=== PATIENT | male | born 1975 | race Caucasian/White ===

== ENCOUNTER 2020-09-24 09:10 | Emergency (ER) | payer SELFPAY ==
--- NOTE | 2020-09-24 12:10 | ER ---
Nurse's Notes [facility] Name: Patrick Soto Age: 45 yrs Sex: Male : 1975 Arrival Date: 09/24/2020 Time: 09:32 Bed DIS8 Private MD: Diagnosis: SARS-associated coronavirus as the cause of diseases classified elsewhere Presentation: 09/24 09:36 Chief complaint: Patient states: chills N/V/D x 3 days. Coronavirus screen: Client da3 denies travel out of the [place] in the last 14 days. Ebola Screen: No symptoms or risks identified at this time. Risk Assessment: Do you want to hurt yourself or someone else? Patient reports no desire to harm self or others. 09:36 Method Of Arrival: Ambulatory da3 09:36 Acuity: CHARLIE 4 da3 Triage Assessment: 09:39 General: Appears in no apparent distress. comfortable, Behavior is calm, cooperative. da3 Historical: - Allergies: 09:38 No Known Allergies; da3 - Immunization history:: Client reports having NOT received the Covid vaccine. - Family history:: not pertinent. - Hospitalizations: : No recent hospitalization is reported. Vital Signs: 09:38 BP 130 / 98; Pulse 73; Resp 20; Temp 98.6; Pulse Ox 100% on R/A; da3 ED Course: 09:32 Patient arrived in ED. ds1 09:38 Triage completed. da3 12:03 Jorje Shea PA is PHCP. yvrose 12:03 Bhavik Guerrero MD is Attending Physician. [facility] 12:35 No provider procedures requiring assistance completed. Patient did not have IV access ss during this emergency room visit. Administered Medications: No medications were administered Outcome: 12:09 Discharge ordered by . rn 12:35 Discharged to home ambulatory. ss 12:35 Condition: good 12:35 Discharge instructions given to patient, Instructed on discharge instructions, follow up and referral plans. Demonstrated understanding of instructions, follow-up care. 12:35 Patient left the ED. ss Signatures: Jorje Shea PA PA jmm Sanford, Demi ds1 Bhavik Guerrero MD MD rn Smirch, Shelby, RN RN ss Allan, David, RN RN da3
--- NOTE | 2020-09-24 12:10 | EDPHYS ---
Physician Documentation [facility] Name: Patrick Soto Age: 45 yrs Sex: Male : 1975 Arrival Date: 09/24/2020 Time: 09:32 Bed DIS8 Private MD: ED Physician Bhavik Guerrero HPI: 09/24 12:03 This 45 yrs old Male presents to ER via Ambulatory with complaints of rn Diarrhea, Body Aches, Chills. 12:03 The patient presents to the emergency department with nausea, diarrhea. Onset: The rn symptoms/episode began/occurred. 12:04 Onset: The symptoms/episode began/occurred 3 day(s) ago. Possible causes: unknown. The rn symptoms are aggravated by nothing. The symptoms are alleviated by nothing. Associated signs and symptoms: Pertinent positives: diarrhea, fever, nausea, Pertinent negatives: abdominal pain, GI bleeding. Severity of symptoms: At their worst the symptoms were mild in the emergency department the symptoms have improved. The patient has not experienced similar symptoms in the past. The patient has not recently seen a physician. Patient reports 3 days of nausea, diarrhea, muscle aches, fatigue, subjective fever. States work told him to come get tested for Covid. Does not want to wait for results. Reports already feeling better with DayQuil. Reports works around a lot of people and was sure that some had Covid. Patient is unvaccinated.. Historical: - Allergies: 09:38 No Known Allergies; da3 - Immunization history:: Client reports having NOT received the Covid vaccine. - Family history:: not pertinent. - Hospitalizations: : No recent hospitalization is reported. 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 12:04 All other systems are negative. Exam: 12:04 Constitutional: This is a well developed, well nourished patient who is awake, alert, rn and in no acute distress. Head/Face: Normocephalic, atraumatic. Eyes: Pupils equal round and reactive to light, extra-ocular motions intact. Lids and lashes normal. Conjunctiva and sclera are non-icteric and not injected. Cornea within normal limits. Periorbital areas with no swelling, redness, or edema. ENT: No stridor Neck: Trachea midline, no masses palpated, no meningismus Cardiovascular: Regular rate and rhythm. No pulse deficits. Respiratory: Speaking full sentences unlabored. No increased work of breathing, no retractions or nasal flaring. Abdomen/GI: Soft, non-tender Skin: Warm, dry MS/ Extremity: Pulses equal, no cyanosis. Neuro: Awake and alert, GCS 15 Vital Signs: 09:38 BP 130 / 98; Pulse 73; Resp 20; Temp 98.6; Pulse Ox 100% on R/A; da3 MDM: 12:04 Differential diagnosis: viral gastroenteritis, gastroenteritis, viral syndrome, Covid. rn Data reviewed: vital signs, nurses notes, and as a result, I will discharge patient. Data interpreted: residential monitor: rate is 73 beats/min, rhythm is normal sinus rhythm, regular, with no ectopy, Interpretation: normal rate, normal rhythm, Pulse oximetry: on room air is 100 %. Interpretation: normal. Counseling: I had a detailed discussion with the patient and/or guardian regarding: the historical points, exam findings, and any diagnostic results supporting the discharge/admit diagnosis, the need for outpatient follow up, to return to the emergency department if symptoms worsen or persist or if there are any questions or concerns that arise at home. Special discussion: I discussed with the patient/guardian in detail that at this point there is no indication for admission to the hospital. It is understood, however, that if the symptoms persist or worsen the patient needs to return immediately for re-evaluation. 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 12:09 Patient medically screened. rn Administered Medications: No medications were administered Disposition Summary: 09/24/20 12:09 Discharge Ordered Location: Home rn Problem: new rn Symptoms: have improved rn Condition: Stable rn Diagnosis - SARS-associated coronavirus as the cause of diseases classified elsewhere rn Followup: rn - With: Private Physician - When: As needed - Reason: Recheck today's complaints, Re-evaluation by your physician Discharge Instructions: - Discharge Summary Sheet rn - COVID-19 rn - 10 Things You Can Do to Manage Your COVID-19 Symptoms at Home - [facility] rn - Viral Illness, Adult rn Forms: - Medication Reconciliation Form rn - Thank You Letter rn - Antibiotic apparel pattern maker - Prescription Opioid Use rn Signatures: Dispatcher [employer] [facility] Bhavik Guerrero MD MD rn Allan, David, RN RN da3 Corrections: (The following items were deleted from the chart) 12:26 11:52 CORONAVIRUS+MR.LAB.BRZ ordered. [facility]
[2020-09-24 12:39] VITALS: BP 130/98; TEMP 98.6; O2SAT 100
== END 2020-09-24 12:35 | disposition home or self-care (01) ==
LOC: ER 09:10
DX: U07.1 COVID-19 (principal)
CPT/HCPCS: 99281; U0003

== ENCOUNTER 2022-07-26 16:25 | Emergency (ER) | payer SELFPAY ==
--- NOTE | 2022-07-26 16:46 | ER ---
Nurse's Notes [facility] Name: Patrick Soto Age: 47 yrs Sex: Male : 1975 Arrival Date: 07/26/2022 Time: 16:25 Bed DIS2 Private MD: Diagnosis: Dental caries, unspecified Presentation: 07/26 16:35 Chief complaint: Patient states: my teeth always bother me, it got bad today, I hit my iw head on the door of my car and the left side of my mouth is inflamed and hurting so bad. Coronavirus screen: At this time, the client does not indicate any symptoms associated with coronavirus-19. Ebola Screen: Patient negative for fever greater than or equal to 101.5 degrees Fahrenheit, and additional compatible Ebola Virus Disease symptoms Patient denies exposure to infectious person. Patient denies travel to an Ebola-affected area in the 21 days before illness onset. No symptoms or risks identified at this time. Initial Sepsis Screen: Does the patient meet any 2 criteria? No. Patient's initial sepsis screen is negative. Does the patient have a suspected source of infection? No. Patient's initial sepsis screen is negative. Risk Assessment: Do you want to hurt yourself or someone else? Patient reports no desire to harm self or others. Onset of symptoms was July 26, 2022. 16:35 Method Of Arrival: Ambulatory iw 16:35 Acuity: CHARLIE 4 iw Historical: - Allergies: 16:36 No Known Allergies; iw - Home Meds: 16:36 None [Active]; iw - PMHx: 16:36 None; iw - PSHx: 16:36 hernia; iw - Immunization history:: Adult Immunizations. - Social history:: Smoking status: Patient reports the use of cigarette tobacco products. Assessment: 17:17 Reassessment: Patient is alert, oriented x 3, equal unlabored respirations, skin aa5 warm/dry/pink. Vital Signs: 16:35 BP 186 / 93; Pulse 64; Resp 16; Temp 98.5; Pulse Ox 96% ; Weight 74.84 kg; Height 6 ft. iw 0 in. ; Pain 10/10; 16:35 Body Mass Index 22.38 (74.84 kg, 182.88 cm) iw 16:35 Pain Scale: Adult iw ED Course: 16:25 Patient arrived in ED. rg4 16:36 Triage completed. iw 16:37 Arm band placed on. iw 16:38 Marivel Soto FNP-C is [facility]. kb 16:38 Mathieu Knight MD is Attending Physician. kb 17:17 No provider procedures requiring assistance completed. Patient did not have IV access aa5 during this emergency room visit. Administered Medications: 17:06 Drug: Ketorolac IM 30 mg Route: IM; Site: left deltoid; aa5 17:18 Follow up: Response: No adverse reaction aa5 17:06 Drug: Amoxicillin-Clavulanate PO 875 mg Route: PO; aa5 17:18 Follow up: Response: No adverse reaction aa5 Medication: 17:17 VIS not applicable for this client. aa5 Outcome: 16:46 Discharge ordered by . kb 17:17 Discharged to home ambulatory, with family. aa5 17:17 Condition: stable 17:17 Discharge instructions given to patient, Instructed on discharge instructions, follow up and referral plans. medication usage, Demonstrated understanding of instructions, follow-up care, medications, Prescriptions given X 2. 17:18 Patient left the ED. aa5 Signatures: Marivel Soto FNP-C FNP-Chantel Calderon RN RN Mariann Bullard RN RN aa5 Gaby Stephen rg4
[2022-07-26] MEDS ORDERED: KETOROLAC 30 MG/ML INJ ONE (17:10)
[2022-07-26] MEDS ORDERED: AMOX/K CLAV 875 MG TAB ONE (17:10)
--- NOTE | 2022-07-26 17:19 | EDPHYS ---
Physician Documentation [facility] Name: Patrick Soto Age: 47 yrs Sex: Male : 1975 Arrival Date: 07/26/2022 Time: 16:25 Bed DIS2 Private MD: ED Physician Mathieu Knight HPI: 07/26 17:18 This 47 yrs old Male presents to ER via Ambulatory with complaints of Toothache, Head kb Injury-Adult. 17:19 The patient presents with pain, redness, swelling. Onset: The symptoms/episode kb began/occurred 1 week(s) ago. Duration: The symptoms are continuous. Modifying factors: The symptoms are alleviated by nothing, the symptoms are aggravated by nothing. Associated signs and symptoms: Pertinent positives: pain, redness in area, swelling. Severity of symptoms: At their worst the symptoms were moderate, in the emergency department the symptoms are unchanged. The patient has not experienced similar symptoms in the past. The patient has not recently seen a physician. Pt reports toothache for one week that has progressively gotten worse. Reports he was walking to his car today and got a sharp pain causing him to bend over and he hit his head on the car door in the process. Denies loc, headache, n/v. Historical: - Allergies: 16:36 No Known Allergies; iw - Home Meds: 16:36 None [Active]; iw - PMHx: 16:36 None; iw - PSHx: 16:36 hernia; iw - Immunization history:: Adult Immunizations. - Social history:: Smoking status: Patient reports the use of cigarette tobacco products. ROS: 17:14 Constitutional: Negative for fever, chills, and weight loss. kb 17:14 ENT: Positive for dental pain. 17:14 All other systems are negative. Exam: 17:14 Constitutional: This is a well developed, well nourished patient who is awake, alert, kb and in no acute distress. Cardiovascular: Regular rate and rhythm with a normal S1 and S2. No gallops, murmurs, or rubs. No pulse deficits. Respiratory: Respirations even and unlabored. No increased work of breathing. Talking in full sentences Skin: Warm, dry with normal turgor. Normal color. MS/ Extremity: Pulses equal, no cyanosis. Neurovascular intact. Full, normal range of motion. Neuro: Awake and alert, GCS 15, oriented to person, place, time, and situation. Moves all extremities. Normal gait. 17:14 Head/face: Noted is no obvious of injury or deformity except abrasion(s), that are mild, of the forehead, hematoma, that is mild, that is moderate, of the forehead. 17:18 ENT: Dental exam: dental caries, that is moderate, diffusely, missing teeth, pain. kb Vital Signs: 16:35 BP 186 / 93; Pulse 64; Resp 16; Temp 98.5; Pulse Ox 96% ; Weight 74.84 kg; Height 6 ft. iw 0 in. ; Pain 10/10; 16:35 Body Mass Index 22.38 (74.84 kg, 182.88 cm) iw 16:35 Pain Scale: Adult iw MDM: 16:38 Patient medically screened. kb 17:13 Differential diagnosis: dental caries, gingivitis, dental abscess. Data reviewed: vital kb signs, nurses notes. Counseling: I had a detailed discussion with the patient and/or guardian regarding: the historical points, exam findings, and any diagnostic results supporting the discharge/admit diagnosis, the need for outpatient follow up, a dentist, to return to the emergency department if symptoms worsen or persist or if there are any questions or concerns that arise at home. Administered Medications: 17:06 Drug: Ketorolac IM 30 mg Route: IM; Site: left deltoid; aa5 17:18 Follow up: Response: No adverse reaction aa5 17:06 Drug: Amoxicillin-Clavulanate PO 875 mg Route: PO; aa5 17:18 Follow up: Response: No adverse reaction aa5 Disposition Summary: 07/26/22 16:46 Discharge Ordered Location: Home kb Condition: Stable kb Diagnosis - Dental caries, unspecified kb Followup: kb - With: Emergency Department - When: As needed - Reason: Worsening of condition Followup: kb - With: Private Physician - When: 2 - 3 days - Reason: Recheck today's complaints, Continuance of care, Re-evaluation by your physician Discharge Instructions: - Discharge Summary Sheet kb - Dental Caries, Adult kb - Dental Pain, Foap-du-Quui kb - Dental Abscess, Daqu-ey-Lsta kb Forms: - Medication Reconciliation Form kb - Thank You Letter kb - Antibiotic Education kb - Prescription Opioid Use kb Prescriptions: - Augmentin 875-125 mg Oral Tablet - take 1 tablet by ORAL route every 12 hours for 10 days; 20 tablet; Refills: 0, kb Product Selection Permitted - Ibuprofen 600 mg Oral Tablet - take 1 tablet by ORAL route every 6 hours As needed take with food; 30 tablet; kb Refills: 0, Product Selection Permitted Signatures: Marivel Soto FNP-C FNP-Ckb Williams, Irene, RN RN iw Mariann Freeman RN RN aa5
[2022-07-26 17:25] VITALS: BP 186/93; TEMP 98.5; O2SAT 96
== END 2022-07-26 17:18 | disposition home or self-care (01) ==
LOC: ER 16:25
DX: K02.9 Dental caries, unspecified (principal)

== ENCOUNTER 2022-07-27 01:44 | Inpatient (IN) | payer SELFPAY ==
[2022-07-27] MEDS ORDERED: ONDANSETRON 4 MG/2 ML VIAL ONE (01:55)
[2022-07-27] MEDS ORDERED: FAMOTIDINE 20 MG/2 ML VIAL IV ONE (02:03)
[2022-07-27] MEDS ORDERED: NA CHLORIDE 0.9% 1,000 ML ONE ×3 (02:03→04:37)
[2022-07-27 02:35] LABS: Absolute Lymphocytes (CBC) 0.7 K/uL (0.7-4.9); Hematocrit 46.2 % (39.6-49.0); Lymphocytes % 3.5 % (15.3-44.8); MCV 92.8 fL (80-100); MPV 8.5 fL (7.6-11.3); RBC Red Blood Cell Count 4.98 M/uL (4.33-5.43)
[2022-07-27 02:45] LABS: ALT/SGPT 38 U/L (16-61); AST/SGOT 28 U/L (15-37); Albumin 4.2 g/dL (3.4-5.0); Alkaline Phosphatase 63 U/L (45-117); BUN Blood Urea Nitrogen 7 mg/dL (7-18); Bicarbonate 19 mEq/L (21-32); Bilirubin Total 0.9 mg/dL (0.2-1.0); Glomerular Filtration Rate 108 ml/min (=/>90); Glucose Level 75 mg/dL (74-106); Lipase 16 U/L (13-75); Potassium 3.7 mEq/L (3.5-5.1); Protein, Total 7.9 g/dL (6.4-8.2); Sodium Level 128 mEq/L (136-145)
[2022-07-27 03:32] LABS: Blood Morphology Comment NOT SEEN (NOT SEEN); Platelet Estimate ADEQ
[2022-07-27] MEDS ORDERED: AMPICILLIN/SULBACTAM 3GM/VIAL ONE (03:34)
[2022-07-27] MEDS ORDERED: NA CHLORIDE 0.9% 100 ML ONE (03:35)
[2022-07-27] MEDS ORDERED: KETOROLAC 30 MG/ML INJ ONE (03:51)
--- NOTE | 2022-07-27 03:52 | EDPHYS ---
Physician Documentation [facility] Name: Patrick Soto Age: 47 yrs Sex: Male : 1975 Arrival Date: 07/27/2022 Time: 01:44 Bed 15 Private MD: ED Physician Junior Morataya HPI: 07/27 01:48 This 47 yrs old Male presents to ER via Unassigned with complaints of upper abd pain, kb n/v. 01:48 The patient presents with abdominal pain in the epigastric area. Onset: The kb symptoms/episode began/occurred today. The symptoms do not radiate. Associated signs and symptoms: Pertinent positives: nausea and vomiting, Pertinent negatives: constipation, diarrhea. The symptoms are described as constant. Modifying factors: The symptoms are alleviated by nothing, the symptoms are aggravated by nothing. Severity of pain: At its worst the pain was moderate in the emergency department the pain is unchanged. The patient has not experienced similar symptoms in the past. The patient has been recently seen at the [facility] Emergency Department, today, for unrelated complaints. Pt was seen here earlier today for a toothache. Was given augmentin and toradol IM with a rx for augmentin and ibuprofen. Pt states he had taken approx 12 tylenol for pain today. Reports he has had upper abd pain and vomiting since discharge. . Historical: - Allergies: 01:45 No Known Allergies; jj7 - PMHx: 01:45 None; jj7 - PSHx: 01:45 hernia; jj7 - Immunization history:: Adult Immunizations not immunized. - Social history:: Smoking status: Patient reports the use of cigarette tobacco products, smokes one pack cigarettes per day. Patient uses alcohol, on a daily basis. ROS: 01:49 Constitutional: Negative for fever, chills, and weight loss. kb 01:49 Abdomen/GI: Positive for abdominal pain, nausea and vomiting, Negative for diarrhea, constipation. 01:49 All other systems are negative. Exam: 01:49 Constitutional: This is a well developed, well nourished patient who is awake, alert, kb and in no acute distress. Head/Face: Normocephalic, atraumatic. ENT: Moist Mucous membranes Cardiovascular: Regular rate and rhythm with a normal S1 and S2. No gallops, murmurs, or rubs. No pulse deficits. Respiratory: Respirations even and unlabored. No increased work of breathing. Talking in full sentences Skin: Warm, dry with normal turgor. Normal color. MS/ Extremity: Pulses equal, no cyanosis. Neurovascular intact. Full, normal range of motion. Neuro: Awake and alert, GCS 15, oriented to person, place, time, and situation. Moves all extremities. Normal gait. 01:49 Abdomen/GI: Inspection: abdomen appears normal, Bowel sounds: normal, Palpation: soft, in all quadrants, moderate abdominal tenderness, in the right upper quadrant. Vital Signs: 01:45 BP 169 / 122; Pulse 86; Resp 20; Pulse Ox 100% ; Weight 72.57 kg; Height 6 ft. 0 in. ; jj7 01:47 BP 166 / 94; Pulse 62; Resp 20 S; Pulse Ox 100% on R/A; ha1 02:51 BP 153 / 89; Pulse 75; Resp 18 S; Temp 97.9(T); Pulse Ox 100% on R/A; ha1 03:20 BP 111 / 73; Pulse 65; Resp 18 S; Pulse Ox 100% on R/A; ha1 04:00 BP 160 / 94; Pulse 58; Resp 18 S; Pulse Ox 100% on R/A; ha1 05:00 BP 131 / 79; Pulse 61; Resp 18 S; Pulse Ox 99% on R/A; ha1 01:45 Body Mass Index 21.70 (72.57 kg, 182.88 cm) j7 MDM: 01:47 Patient medically screened. kb 01:50 Differential diagnosis: cholecystitis, Cholelithiasis, gastritis, gastroesophageal kb reflux disease, non-specific abd pain, pancreatitis, tylenol toxicity. Data reviewed: vital signs, nurses notes. 01:50 Historians other than the Patient: EMS: [facility]. kb 02:09 Transition of care: After a detail discussion of the patient's case, care is kb transferred to Junior Morataya MD. 07/27 01:51 Order name: CBC with Diff; Complete Time: 03:35 kb 07/27 01:51 Order name: CMP; Complete Time: 03:22 kb 07/27 01:51 Order name: Lipase; Complete Time: 03:22 kb 07/27 01:51 Order name: Tylenol Level; Complete Time: 03:22 kb 07/27 02:48 Order name: Manual Differential; Complete Time: 03:35 EDMS 07/27 03:23 Order name: Lactate w/ 2H reflex if indic.; Complete Time: 04:34 sp3 07/27 03:43 Order name: Blood Culture Adult (2) la1 07/27 03:44 Order name: Procalcitonin; Complete Time: 05:19 la1 07/27 04:33 Order name: Urine W/Microscopic (UAM); Complete Time: 05:19 la1 07/27 06:45 Order name: Lactate w/ 2H reflex if indic. ha1 07/27 07:04 Order name: T4 Free EDMS 07/27 07:23 Order name: Lactate Sepsis 2 HR Follow-up EDMS 07/27 01:54 Order name: US Abdomen Limited kb 07/27 02:03 Order name: CT Head Brain wo Cont kb 07/27 03:43 Order name: CXR XRAY sp3 07/27 04:42 Order name: CT Abd/Pelvis - IV Contrast Only la1 07/27 01:51 Order name: IV Saline Lock; Complete Time: 02:13 kb 07/27 01:51 Order name: Labs collected and sent; Complete Time: 02:15 kb Administered Medications: 01:53 Drug: Ondansetron IVP 4 mg Route: IVP; Site: right forearm; ha1 02:30 Follow up: Response: No adverse reaction; Nausea is decreased ha1 02:35 Follow up: Response: No adverse reaction; Nausea is decreased ha1 02:00 Drug: NS 0.9% IV 1000 ml Route: IV; Rate: 1 bolus; Site: right hand; ha1 05:57 Follow up: Response: No adverse reaction; IV Status: Completed infusion; IV Intake: ha1 1000ml 02:00 Drug: Famotidine IVP 20 mg Route: IVP; Site: right hand; ha1 02:30 Follow up: Response: No adverse reaction ha1 02:35 Follow up: Response: No adverse reaction; Nausea is decreased ha1 03:30 Drug: NS 0.9% IV 1000 ml Route: IV; Rate: bolus; Site: right hand; ha1 05:56 Follow up: Response: No adverse reaction; IV Status: Completed infusion; IV Intake: ha1 1000ml 03:40 Drug: Ampicillin-Sulbactam Sodium IVPB 3 grams Route: IVPB; Infused Over: 30 mins; ha1 Site: right hand; 04:15 Follow up: Response: No adverse reaction; IV Status: Completed infusion; IV Intake: ha1 100ml 03:46 Drug: Ketorolac IVP 30 mg Route: IVP; Site: right antecubital; ha1 04:15 Follow up: Response: No adverse reaction; Pain is decreased ha1 04:34 Drug: NS 0.9% IV 1000 ml Route: IV; Rate: 1 bolus; Site: right antecubital; ha1 05:55 Follow up: Response: No adverse reaction; IV Status: Completed infusion; IV Intake: ha1 1000ml 05:08 Drug: Promethazine IVP 25 mg Route: IVP; Site: right antecubital; ha1 05:55 Follow up: Response: No adverse reaction; Nausea is decreased ha1 05:09 Drug: NS 0.9% IV (30 ml/kg) 30 ml/kg Route: IV; Rate: bolus; Site: right antecubital; ha1 07:51 Follow up: IV Status: Infusion continued upon admission db Disposition: 03:38 Co-signature as Attending Physician, Marivel MCLEOD I agree with the assessment sp3 and plan of care. Patient signed out to me at 3 AM. Patient is a 47-year-old male no past medical history now presents with mouth pain, poor dentition and was seen earlier today and discharged on p.o. Augmentin. He returns for some nausea and vomiting and upset stomach. Work-up done by midlevel provider demonstrates WBC count of 19,000 with left shift and bandemia and now a hyponatremia of 128 sodium. Lactate added and patient given Unasyn [address] patient in 23-hour observation with repeat labs later and continued antibiotics.. Disposition Summary: 07/27/22 03:52 Hospitalization Ordered Hospitalization Status: Observation sp3 Provider: Juan Luis Guerrero sp3 Condition: Stable sp3 Problem: an acute exacerbation sp3 Symptoms: have worsened sp3 Bed/Room Type: Standard sp3 Location: Telemetry/MedSurg (observation)(07/27/22 06:31) mw Room Assignment: 408(07/27/22 06:31) mw Diagnosis - Other specified sepsis sp3 Forms: - Medication Reconciliation Form sp3 - SBAR form sp3 Signatures: Dispatcher [employer] Marivel Cowan, PAUL-C PAUL-Shahla Corcoran RN RN mw Frederick Alanis FNP-C FNP-Junior Quintana MD MD sp3 Susy Landin RN RN ha1 Betty Bryan RN RN jj7 Shira Bran RN db Corrections: (The following items were deleted from the chart) 06:06 03:52 Telemetry/MedSurg (observation) sp3 mw 06:06 03:52 sp3 mw 06:31 06:06 [facility] ER HOLD mw mw 06:31 06:06 ERHOLD- mw mw
--- NOTE | 2022-07-27 03:52 | ER ---
Nurse's Notes [facility] Name: Patrick Soto Age: 47 yrs Sex: Male : 1975 Arrival Date: 07/27/2022 Time: 01:44 Bed 15 Private MD: Diagnosis: Other specified sepsis Presentation: 07/27 01:45 Chief complaint: Patient states: STATES FROM 8A-3P HE TOOK 12 500 MG TYLENOL FOR jj7 TOOTHACHE. WAS SEEN IN THIS ER 07/26/22. STATES HE HAS BEEN VOMITING SINCE HE WAS DISCHARGED AROUND 6P. ABD PAIN AND VOMITING EMS states: N/V SINCE 6P. Coronavirus screen: At this time, the client does not indicate any symptoms associated with coronavirus-19. Ebola Screen: No symptoms or risks identified at this time. Initial Sepsis Screen: Does the patient meet any 2 criteria? No. Patient's initial sepsis screen is negative. Does the patient have a suspected source of infection? No. Patient's initial sepsis screen is negative. Risk Assessment: Do you want to hurt yourself or someone else? Patient reports no desire to harm self or others. Onset of symptoms was July 26, 2022 at 18:00. 01:45 Method Of Arrival: EMS: [facility] jj7 01:45 Acuity: CHARLIE 3 jj7 Triage Assessment: 01:45 General: Appears in no apparent distress. uncomfortable, Behavior is cooperative, jj7 appropriate for age, ACTIVELY VOMITING. GI: Pt is actively vomiting Reports lower abdominal pain, upper abdominal pain, nausea, vomiting, since 6P LAST NIGHT. Historical: - Allergies: 01:45 No Known Allergies; jj7 - PMHx: 01:45 None; jj7 - PSHx: 01:45 hernia; jj7 - Immunization history:: Adult Immunizations not immunized. - Social history:: Smoking status: Patient reports the use of cigarette tobacco products, smokes one pack cigarettes per day. Patient uses alcohol, on a daily basis. Screenin:45 [facility] ED Fall Risk Assessment (Adult) History of falling in the last 3 months, jj7 including since admission No falls in past 3 months (0 pts) Confusion or Disorientation No (0 pts) Intoxicated or Sedated No (0 pts) Impaired Gait Yes (1 pt) Mobility Assist Device Used No (0 pt) Altered Elimination No (0 pt) Score/Fall Risk Level 0 - 2 = Low Risk Oriented to surroundings, Maintained a safe environment. Abuse screen: Denies threats or abuse. Nutritional screening: No deficits noted. Tuberculosis screening: No symptoms or risk factors identified. Assessment: 01:45 Reassessment: SEE TRIAGE ASSESSMENT. jj7 01:47 General: Appears uncomfortable, Behavior is calm, anxious. Pain: Complains of pain in ha1 abdomen Pain currently is 7 out of 10 on a pain scale. Neuro: Level of Consciousness is awake, alert, obeys commands, Oriented to person, place, time, situation. Cardiovascular: Patient's skin is warm and dry. Respiratory: Airway is patent Respiratory effort is even, unlabored, Respiratory pattern is regular, symmetrical. GI: Abdomen is flat, non-distended, Bowel sounds present X 4 quads. Reports nausea, vomiting. : No signs and/or symptoms were reported regarding the genitourinary system. Musculoskeletal: Circulation, motion, and sensation intact. Range of motion: intact in all extremities. 02:30 Reassessment: Patient and/or family updated on plan of care and expected duration. Pain ha1 level reassessed. Patient is alert, oriented x 3, equal unlabored respirations, skin warm/dry/pink. Patient states symptoms have improved. 03:20 Reassessment: Patient and/or family updated on plan of care and expected duration. Pain ha1 level reassessed. Patient is alert, oriented x 3, equal unlabored respirations, skin warm/dry/pink. 04:20 Reassessment: Patient and/or family updated on plan of care and expected duration. Pain ha1 level reassessed. Patient is alert, oriented x 3, equal unlabored respirations, skin warm/dry/pink. 05:20 Reassessment: Patient and/or family updated on plan of care and expected duration. Pain ha1 level reassessed. Patient is alert, oriented x 3, equal unlabored respirations, skin warm/dry/pink. Patient denies pain at this time. Patient states feeling better. Patient states symptoms have improved. Vital Signs: 01:45 BP 169 / 122; Pulse 86; Resp 20; Pulse Ox 100% ; Weight 72.57 kg; Height 6 ft. 0 in. ; jj7 01:47 BP 166 / 94; Pulse 62; Resp 20 S; Pulse Ox 100% on R/A; ha1 02:51 BP 153 / 89; Pulse 75; Resp 18 S; Temp 97.9(T); Pulse Ox 100% on R/A; ha1 03:20 BP 111 / 73; Pulse 65; Resp 18 S; Pulse Ox 100% on R/A; ha1 04:00 BP 160 / 94; Pulse 58; Resp 18 S; Pulse Ox 100% on R/A; ha1 05:00 BP 131 / 79; Pulse 61; Resp 18 S; Pulse Ox 99% on R/A; ha1 01:45 Body Mass Index 21.70 (72.57 kg, 182.88 cm) jj7 ED Course: 01:45 Arm band placed on right wrist. Patient placed in an exam room, on a stretcher, Emesis jj7 basin given. 01:45 Patient has correct armband on for positive identification. Bed in low position. Call jj7 light in reach. Side rails up X2. Warm blanket given. 01:45 Maintain EMS IV. Dressing intact. Good blood return noted. Site clean \T\ dry. Gauge \T\ jj 7 site: 20 G RIGHT HAND. 01:47 Patient arrived in ED. kb 01:47 Marivel [facility] FNP-C [facility]. kb 01:47 Junior Morataya MD is Attending Physician. kb 01:52 Susy Landin, AUGUST is Primary Nurse. ha1 01:55 Triage completed. jj7 02:00 Inserted saline lock: 20 gauge in right antecubital area, using aseptic technique. ha1 Blood collected. 02:15 CBC with Diff Sent. ha1 02:15 CMP Sent. ha1 02:15 Lipase Sent. ha1 02:29 US Abdomen Limited In Process Unspecified. EDMS 02:36 CT Head Brain wo Cont In Process Unspecified. EDMS 02:53 CBC with Diff Sent. ha1 02:53 CMP Sent. ha1 02:53 Lipase Sent. ha1 03:47 Lactate w/ 2H reflex if indic. Sent. ha1 03:51 Juan Luis Guerrero MD is Hospitalizing Provider. sp3 03:55 CXR XRAY In Process Unspecified. EDMS 07:07 No provider procedures requiring assistance completed. Patient admitted, IV remains in db place. 07:15 Client placed on continuous cardiac and pulse oximetry monitoring. NIBP monitoring db applied. Administered Medications: 01:53 Drug: Ondansetron IVP 4 mg Route: IVP; Site: right forearm; ha1 02:30 Follow up: Response: No adverse reaction; Nausea is decreased ha1 02:35 Follow up: Response: No adverse reaction; Nausea is decreased ha1 02:00 Drug: NS 0.9% IV 1000 ml Route: IV; Rate: 1 bolus; Site: right hand; ha1 05:57 Follow up: Response: No adverse reaction; IV Status: Completed infusion; IV Intake: ha1 1000ml 02:00 Drug: Famotidine IVP 20 mg Route: IVP; Site: right hand; ha1 02:30 Follow up: Response: No adverse reaction ha1 02:35 Follow up: Response: No adverse reaction; Nausea is decreased ha1 03:30 Drug: NS 0.9% IV 1000 ml Route: IV; Rate: bolus; Site: right hand; ha1 05:56 Follow up: Response: No adverse reaction; IV Status: Completed infusion; IV Intake: ha1 1000ml 03:40 Drug: Ampicillin-Sulbactam Sodium IVPB 3 grams Route: IVPB; Infused Over: 30 mins; ha1 Site: right hand; 04:15 Follow up: Response: No adverse reaction; IV Status: Completed infusion; IV Intake: ha1 100ml 03:46 Drug: Ketorolac IVP 30 mg Route: IVP; Site: right antecubital; ha1 04:15 Follow up: Response: No adverse reaction; Pain is decreased ha1 04:34 Drug: NS 0.9% IV 1000 ml Route: IV; Rate: 1 bolus; Site: right antecubital; ha1 05:55 Follow up: Response: No adverse reaction; IV Status: Completed infusion; IV Intake: ha1 1000ml 05:08 Drug: Promethazine IVP 25 mg Route: IVP; Site: right antecubital; ha1 05:55 Follow up: Response: No adverse reaction; Nausea is decreased ha1 05:09 Drug: NS 0.9% IV (30 ml/kg) 30 ml/kg Route: IV; Rate: bolus; Site: right antecubital; ha1 07:51 Follow up: IV Status: Infusion continued upon admission db Medication: 01:45 VIS not applicable for this client. jj7 Intake: 04:15 IV: 100ml; Total: 100ml. ha1 05:55 IV: 1000ml; Total: 1100ml. ha1 05:56 IV: 1000ml; Total: 2100ml. ha1 05:57 IV: 1000ml; Total: 3100ml. ha1 Outcome: 03:52 Decision to Hospitalize by Provider. sp3 07:07 Admitted to ER Hold. Please see [facility] for further documentation. db 07:07 Condition: stable 07:07 Instructed on the need for admit. 07:54 Patient left the ED. db Signatures: Dispatcher [employer] EDMS Marivel Soto, CLEAN UP WORKER-C CLEAN UP WORKER-CkJunior Casey MD MD sp3 Susy Landin RN RN ha1 Betty Bryan RN RN jj7 Shira Bran RN RN db Corrections: (The following items were deleted from the chart) 05:59 02:51 BP 153 / 89; Pulse 75bpm; Resp 18bpm; Spontaneous; Pulse Ox 100% RA; ha1 ha1
--- NOTE | 2022-07-27 05:10 | P.HP ---
Certification for Inpatient Patient admitted to: Observation With expected LOS: <2 Midnights Patient will require the following post-hospital care: None Practitioner: I am a practitioner with admitting privileges, knowledge of patient current condition, hospital course, and medical plan of care. Services: Services provided to patient in accordance with Admission requirements found in Title 42 Section 412.3 of the Code of Federal Regulations Patient History Date of Service: 07/27/22 Reason for admission: Intractable vomiting, leukocytosis History of Present Illness: 47-year-old otherwise healthy male presents to the emergency department with chief complaint of abdominal pain, vomiting. He was seen earlier in the day on 07/26/2022 with chief complaint of dental pain. He was given a dose of ketorolac and p.o. Augmentin and was subsequently discharged home. He left the ER around 5 PM and went up and picked up his prescription for Augmentin, by the time he got home he began having abdominal pain and vomiting which was persistent. He said he believes he threw up around 8 times from when he got home until he came back to the emergency department. He arrived back to the emergency department around 2 AM today. He had labs performed which were remarkable for marked leukocytosis with also count 19.2 11% bands sodium 128 chloride 94 bicarb 19 lactate of 4.0 urinalysis pending abdominal ultrasound was performed which was negative for signs of cholecystitis. His chest x-ray appears clear pending official interpretation. He does have mild periumbilical abdominal tenderness, CT abdomen pelvis ordered for further examination given his lab abnormalities. He is still having persistent vomiting. He denies having any abdominal pain prior to taking the Augmentin. Allergies No Known Drug Allergies Allergy (Unverified 08/23/14 06:26) Unknown - Past Medical/Surgical History -: None -: Hernia repair Psychosocial/ Personal History: Patient is employed at [employer], lives at home. - Family History Family History: Reviewed- Non-Contributory - Social History Smoking Status: Current every day smoker Smoking therapy provided: No Patient receptive to therapy: Yes Alcohol use: Yes CD- Drugs: No Caffeine use: No Place of Residence: Home Review of Systems 10-point ROS is otherwise unremarkable ENT: Other (Dental pain) Gastrointestinal: Nausea, Vomiting, Abdominal Pain Physical Examination - Physical Exam General: Alert, In no apparent distress, Oriented x3 HEENT: Atraumatic, PERRLA, Mucous membr. moist/pink, Other (Poor dentition), EOMI, Sclerae nonicteric Neck: Supple, 2+ carotid pulse no bruit, No LAD, Without JVD or thyroid abnormality Respiratory: Clear to auscultation bilaterally, Normal air movement Cardiovascular: Regular rate/rhythm, Normal S1 S2 Gastrointestinal: Normal bowel sounds, Tenderness (Mild periumbilical tenderness) Musculoskeletal: No tenderness Integumentary: No rashes Neurological: Normal speech, Normal strength at 5/5 x4 extr, Normal tone, Normal affect - Studies Laboratory Data (last 24 hrs) 07/27/22 02:15: Sodium 128 L, Potassium 3.7, BUN 7, Creatinine 0.87, Glucose 75, Total Bilirubin 0.9, AST 28, ALT 38, Alkaline Phosphatase 63, Lipase 16 07/27/22 02:15: WBC 19.20 H, Hgb 15.7, Hct 46.2, Plt Count 272 Assessment and Plan - Plan Assessment: Intractable vomiting Leukocytosis Lactic acidosis Mild hyponatremia Dental caries Tobacco abuse Alcohol use Plan: Intractable vomiting Leukocytosis Lactic acidosis Mild hyponatremia Patient symptoms began after taking oral antibiotic on empty stomach, ultrasound negative for cholecystitis, CT abdomen pelvis pending. I believe the leukocytosis may be reactive in nature, lactic acidosis may be from hypovolemia secondary to vomiting or other metabolic cause. No source of infection confirmed at this time patient does have poor dentition no obvious abscess present. Await results from CT scan for further characterization. Blood cultures were obtained in the ER, he did receive 30 cc/kg IV fluid bolus, n.p.o. given his persistent vomiting with as needed antiemetics. Dental caries Discussed need for outpatient evaluation with dentist/oral surgeon Tobacco abuse Counseled on need for tobacco cessation, declined NicoDerm patch. Alcohol use Patient admits to drinking "a few times a week" he drinks approximately 12 beers " with a friend" when he drinks. Denies history of alcohol withdrawals, will monitor for signs of alcohol withdrawals and give benzodiazepines as needed. DVT PPX: Lovenox Code status: Full Discharge Plan: Home Plan to discharge in: 24 Hours - Advance Directives Does patient have a Living Will: No Does patient have a Durable POA for Healthcare: No - Code Status/Comfort Care Code Status Assessed: Yes (Full code) Critical Care: No Time Spent Managing Pts Care (In Minutes): 55
[2022-07-27] MEDS ORDERED: PROMETHAZINE INJ 25 MG/ML AMP ONE (05:13)
[2022-07-27 05:19] LABS: Urine Bacteria None Seen /HPF (<20); Urine Bilirubin NEGATIVE (Negative); Urine Blood Trace (Negative); Urine Clarity Clear (Clear); Urine Color Colorless (Yellow); Urine Glucose NEGATIVE (Negative); Urine Mucus Slight /HPF (None Seen); Urine Protein NEGATIVE (Negative); Urine RBC <5 /HPF (None Seen); Urine Urobilinogen Normal (Normal)
[2022-07-27] MEDS ORDERED: ONDANSETRON 4 MG/2 ML VIAL IV PRN (06:00)
[2022-07-27] MEDS ORDERED: PROMETHAZINE INJ 25 MG/ML AMP IV PRN (06:00)
[2022-07-27] MEDS: Ringers Lactate 1,000 ML IV SCH ×4 (06:00→21:35)
[2022-07-27] MEDS ORDERED: Ringers Lactate 1,000 ML IV ONE (06:12)
[2022-07-27 06:16] VITALS: BMI 25.8
--- NOTE | 2022-07-27 07:23 | P.PN ---
Date of Service: 07/27/22 Subjective: continues with nausea/vomiting this morning, but feels he is improving the pain in upper abdomen that felt "stuck" has significantly improved no new symptoms since admission tolerating Unasyn ROS: 10 point ROS as noted above, otherwise negative Physical Exam: GEN: Alert, oriented, NAD HEENT: Normal conjunctiva, sclera anicteric, Poor dentition CV: Regular rate and rhythm, no edema Pulm: Nonlabored respirations on room air ABD: Soft, Mild periumbilical tenderness, nondistended Neuro: Normal speech, normal affect vitals reviewed Problem List: Intractable nausea/vomiting, abdominal pain Leukocytosis Lactic acidosis Mild hyponatremia Symptoms began ~2-3 hours after receiving IV toradol and Augmentin on empty stomach felt pain / knot stuck in upper mid-abdomen ~epigastric/periumbilical area unclear exact cause, likely combination of dehydration / empty stomach, and both meds advance diet as tolerated, slowly continue IV unasyn for possible tooth infection will PO challenge today, transition to augmentin tomorrow morning u/s negative for cholecystitis CT abdomen/pelvis negative for acute process No source of infection confirmed at this time patient does have poor dentition no obvious abscess present. Blood cultures were obtained in the ED recheck labs this afternoon, hyponatremia, lactic acidosis secondary to vomiting leukocytosis likely exaggerated secondary to hemoconcentration Dental caries Discussed need for outpatient evaluation with dentist/oral surgeon continue unasyn Tobacco abuse Counseled on need for tobacco cessation, declined NicoDerm patch. Alcohol use Patient admits to drinking "a few times a week" he drinks approximately 12 beers " with a friend" when he drinks. Denies history of alcohol withdrawals, will monitor for signs of alcohol withdrawals and give benzodiazepines as needed. VTE: ambulatory Code: full Dispo: home, ~24hrs once tolerating diet, PO antibiotic challenge
[2022-07-27] MEDS: ENOXAPARIN 40 MG/0.4 ML SQ SCH (08:19)
[2022-07-27] MEDS: AMPICILLIN/SULBACT 1.5 GM in NA CHLORIDE 0.9% 100 ML IVPB SCH ×2 (08:20→16:46)
[2022-07-27] MEDS ORDERED: KCL 20 MEQ/100 mL IVPB 20 MEQ/100 ML BAG IV ONE (09:00)
--- NOTE | 2022-07-27 13:15 | RAD REPORT ---
EXAM DESCRIPTION: Abdomen Exam Limited 07/27/2022 3:09 AM CDT CLINICAL HISTORY: 47 years, Male, ABD PAIN COMPARISON: None. TECHNIQUE: Utilizing a curved array transducer, real-time ultrasound evaluation of the abdominal vis cera was performed. Color Doppler imaging was used to assess vascular flow. FINDINGS: The liver is increase in echogenicity perhaps increase in size although was not measured. The gallbladder demonstrate to be within normal limits. No gallbladder stones were seen. No peric holecystic fluid and or wall thickening was identified. The common bile duct measures 3.4 mm. No intra or extrahepatic biliary duct dilatation was identified. No significant free fluid within the visualized images of the upper abdomen. IMPRESSION: No sonographic evidence of cholecystitis. Increased echogenicity of the liver could be s econdary to fatty infiltration. Electronically signed by: Irwin Sofia MD 07/27/2022 3:11 AM CDT Due to temporary technical issues with the PACS/Fluency reporting system, reports are being signed by the in house radiologists without review as a courtesy to insure prompt reporting. The interpreting radiologist is fully responsible for the content of the report.
[2022-07-27] MEDS ORDERED: ACETAMINOPHEN 500 MG TAB PO PRN (13:16)
--- NOTE | 2022-07-27 13:18 | RAD REPORT ---
EXAM DESCRIPTION: Head Brain Wo Cont 07/27/2022 3:11 AM CDT CLINICAL HISTORY: 47 years, Male, HEADACHE COMPARISON: None. FINDINGS: Multiple transaxial tomograms of the brain were obtained from the base of the skull to the vertex without contrast. 2-D multiplanar reformats and the coronal and sagittal plane were performed and reviewed. This exam was performed according to our departmental dose-optimization protocol, which includes auto mated exposure control, adjustment of the mA and/or kV according to patient size and/or use of iterat luna reconstruction technique. Brain parenchyma as well as the iglesias and white matter differentiation demonstrate to be unremarkable. There is no midline shift and/or mass effect. There is no evidence for acute hemorrhage. There are n o focal areas of hypodensities. Lateral ventricles and cisterns displace normal appearance. No intr a or extra axial fluid collections were seen. The calvarium is intact with no evidence for fracture. The visualized portions of the paranasal sinuses and orbits demonstrate to be clear. IMPRESSION: No acute intracranial hemorrhage identified. Unremarkable CT scan of the head without contrast. Electronically signed by: Irwin Sofia MD 07/27/2022 3:12 AM CDT Due to temporary technical issues with the PACS/Fluency reporting system, reports are being signed by the in house radiologists without review as a courtesy to insure prompt reporting. The interpreting radiologist is fully responsible for the content of the report.
--- NOTE | 2022-07-27 13:29 | RAD REPORT ---
EXAM DESCRIPTION: Abdomen Pelvis W Contrast CLINICAL HISTORY: ABD PAIN TECHNIQUE: Contiguous axial images obtained through the abdomen and pelvis following the uneventful administration of IV contrast. Coronal and sagittal reformatted images were provided. This exam was performed according to our departmental dose-optimization program, which includes autom ated exposure control, adjustment of the mA and/or kV according to patient size and/or use of iterati ve reconstruction technique. COMPARISON: None available for comparison. FINDINGS: Lung bases: Clear Liver: Diffuse fatty infiltration of the liver. Gallbladder and biliary system: Unremarkable Pancreas: Unremarkable Spleen: Unremarkable Adrenals: Unremarkable Kidneys: Normal renal cortical enhancement. No calculi. No hydronephrosis. Nonspecific perinephric st randing, which may be chronic. GI: No obstruction. No appreciable mucosal thickening. Appendix: No findings to suggest acute appendicitis. Urinary bladder: Unremarkable Reproductive: Unremarkable as visualized Lymph nodes: No pathologically enlarged lymph nodes. Peritoneum: No focal fluid collection. No free air. Vessels: No abdominal aortic aneurysm. Abdominal wall: Thickening along the right inguinal region, likely postsurgical. Bones: Unremarkable IMPRESSION: 1. No acute intra-abdominal or pelvic disease. 2. Diffuse fatty infiltration of the liver. 3. Thickening along the right inguinal region, likely postsurgical. Electronically signed by: Lacho Fernandez MD 07/27/2022 6:12 AM CDT Due to temporary technical issues with the PACS/Fluency reporting system, reports are being signed by the in house radiologists without review as a courtesy to insure prompt reporting. The interpreting radiologist is fully responsible for the content of the report.
[2022-07-27 13:48] LABS: Hematocrit 43.7 % (39.6-49.0); MCV 92.7 fL (80-100); MPV 8.5 fL (7.6-11.3); RBC Red Blood Cell Count 4.71 M/uL (4.33-5.43)
[2022-07-27 13:53] LABS: Magnesium 2.2 mg/dL (1.6-2.4); Potassium 3.9 mEq/L (3.5-5.1)
--- NOTE | 2022-07-27 15:01 | RAD REPORT ---
EXAM DESCRIPTION: EXAM: Chest Radiography COMPARISON: None. CLINICAL HISTORY: HS MAIN leukocytosis FINDINGS: A single AP view of the chest demonstrates a normal cardiomediastinal silhouette. No pneumothorax or pleural effusion. No consolidation or pulmonary edema. Osseous structures are intact. IMPRESSION: No acute chest process. Electronically signed by: Jacob Singh MD 07/27/2022 4:52 AM CDT Due to temporary technical issues with the PACS/Fluency reporting system, reports are being signed by the in house radiologists without review as a courtesy to insure prompt reporting. The interpreting radiologist is fully responsible for the content of the report.
[2022-07-27 21:46] VITALS: O2SAT 98
[2022-07-28] MEDS: AMPICILLIN/SULBACT 1.5 GM in NA CHLORIDE 0.9% 100 ML IVPB SCH (00:42)
[2022-07-28] MEDS: Ringers Lactate 1,000 ML IV SCH ×3 (02:00→08:40)
[2022-07-28 06:30] LABS: Absolute Lymphocytes (CBC) 1.6 K/uL (0.7-4.9); Hematocrit 40.4 % (39.6-49.0); Lymphocytes % 21.9 % (15.3-44.8); MCV 92.9 fL (80-100); MPV 8.6 fL (7.6-11.3); RBC Red Blood Cell Count 4.35 M/uL (4.33-5.43)
[2022-07-28] MEDS ORDERED: AMOX/K CLAV 875 MG TAB PO ONE (07:00)
[2022-07-28 07:01] LABS: Thyroid Stimulating Hormone 2.98 uIU/mL (0.358-3.740)
--- NOTE | 2022-07-28 07:10 | P.PN ---
Date of Service: 07/28/22 Subjective: ROS: 10 point ROS as noted above, otherwise negative Physical Exam: GEN: Alert, oriented, NAD HEENT: Normal conjunctiva, sclera anicteric, Poor dentition CV: Regular rate and rhythm, no edema Pulm: Nonlabored respirations on room air ABD: Soft, Mild periumbilical tenderness, nondistended Neuro: Normal speech, normal affect vitals reviewed Problem List: Intractable nausea/vomiting, abdominal pain Leukocytosis Lactic acidosis Mild hyponatremia Symptoms began ~2-3 hours after receiving IV toradol and Augmentin on empty stomach felt pain / knot stuck in upper mid-abdomen ~epigastric/periumbilical area unclear exact cause, likely combination of dehydration / empty stomach, and both meds advance diet as tolerated, slowly continue IV unasyn for possible tooth infection will PO challenge today, transition to augmentin tomorrow morning u/s negative for cholecystitis CT abdomen/pelvis negative for acute process No source of infection confirmed at this time patient does have poor dentition no obvious abscess present. Blood cultures were obtained in the ED recheck labs this afternoon, hyponatremia, lactic acidosis secondary to vomiting leukocytosis likely exaggerated secondary to hemoconcentration Dental caries Discussed need for outpatient evaluation with dentist/oral surgeon continue unasyn Tobacco abuse Counseled on need for tobacco cessation, declined NicoDerm patch. Alcohol use Patient admits to drinking "a few times a week" he drinks approximately 12 beers " with a friend" when he drinks. Denies history of alcohol withdrawals, will monitor for signs of alcohol withdrawals and give benzodiazepines as needed. VTE: ambulatory Code: full Dispo: home, ~24hrs once tolerating diet, PO antibiotic challenge
[2022-07-28] MEDS: ENOXAPARIN 40 MG/0.4 ML SQ SCH (07:42)
[2022-07-28 08:41] VITALS: BP 158/94; TEMP 97.1
--- NOTE | 2022-07-28 08:54 | P.DS ---
Admission Date: 07/27/22 Discharge Date: 07/28/22 Reason for Admission: Intractable vomiting, leukocytosis Brief History of Present Illness: 47yo M, PMH: none Patient presents to the emergency department with chief complaint of abdominal pain, vomiting. He was seen earlier in the day on 07/26/2022 with chief complaint of dental pain. He was given a dose of ketorolac and p.o. Augmentin and was subsequently discharged home. He left the ER around 5 PM and went up and picked up his prescription for Augmentin, by the time he got home he began having abdominal pain and vomiting which was persistent. He said he believes he threw up around 8 times from when he got home until he came back to the emergency department. He arrived back to the emergency department around 2 AM today. He does have mild periumbilical abdominal tenderness, CT abdomen pelvis ordered for further examination given his lab abnormalities. He is still having persistent vomiting. He denies having any abdominal pain prior to taking the Augmentin. Hospital Course: Problem List: Intractable nausea/vomiting, abdominal pain Leukocytosis Lactic acidosis Mild hyponatremia Dental caries Tobacco abuse Alcohol use Patient presented with abdominal pain, vomiting, dental pain. CT abdomen, ultrasound were negative for any acute findings. Symptoms began ~2-3 hours after receiving IV toradol and Augmentin on empty stomach when he felt pain/knot stuck in upper mid-abdomen ~epigastric/periumbilical area. He was given IV unasyn for possible dental infection, however no clear source of infection was found. Blood cultures were without growth, however final results pending upon discharge. His symptoms are likely due to a combination of dehydration / taking medications on an empty stomach, possibly gastroenteritis.. He is to complete course of augmentin on discharge. Patient was found to have poor dentition and recommended patient to follow up with dentist/oral surgeon within a few weeks for further evaluation and treatment. Recommended patient to take pepcid for ~2 months if abdominal burning sensation returns. If nothing improves may need to consider follow up with GI for possible scope/further evaluation New Prescription Augmentin avoid taking ibuprofen/naproxen Follow up: PCP 3-5 days Dentist/oral surgeon as soon as possible Physical Exam: GEN: Alert, oriented, NAD HEENT: Normal conjunctiva, sclera anicteric, Poor dentition CV: Regular rate and rhythm, no edema Pulm: Nonlabored respirations on room air ABD: Soft, Mild periumbilical tenderness, nondistended MSK: No joint tenderness Integumentary: No rashes Neuro: Normal speech, normal affect Vital Signs/Physical Exam: Temp Pulse Resp BP Pulse Ox 97.1 F 57 18 158/94 H 96 07/28/22 08:00 07/28/22 08:00 07/28/22 08:00 07/28/22 08:00 07/28/22 08:00 Laboratory Data at Discharge: WBC 7.50 thou/uL (4.3-10.9) 07/28/22 05:50 Hgb 13.9 g/dL (13.6-17.9) 07/28/22 05:50 Hct 40.4 % (39.6-49.0) 07/28/22 05:50 Plt Count 219 thou/uL (152-406) 07/28/22 05:50 Sodium 134 mEq/L (136-145) L 07/28/22 05:50 Potassium 4.0 mEq/L (3.5-5.1) 07/28/22 05:50 BUN 6 mg/dL (7-18) L 07/28/22 05:50 Creatinine 0.85 mg/dL (0.70-1.30) 07/28/22 05:50 Glucose 114 mg/dL (74-106) H 07/28/22 05:50 Magnesium 2.2 mg/dL (1.6-2.4) 07/27/22 13:28 Total Bilirubin 0.9 mg/dL (0.2-1.0) 07/27/22 02:15 AST 28 U/L (15-37) 07/27/22 02:15 ALT 38 U/L (16-61) 07/27/22 02:15 Alkaline Phosphatase 63 U/L (45-117) 07/27/22 02:15 Lipase 24 U/L (13-75) 07/28/22 05:50 Home Medications: NK [No Home Meds] 07/27/22 Physician Discharge Instructions: Patient presented with abdominal pain, vomiting, dental pain. CT abdomen, ultrasound were negative for any acute findings. Symptoms began ~2-3 hours after receiving IV toradol and Augmentin on empty stomach when he felt pain/knot stuck in upper mid-abdomen ~epigastric/periumbilical area. He was given IV unasyn for possible dental infection, however no clear source of infection was found. Blood cultures were without growth, however final results pending upon discharge. His symptoms are likely due to a combination of dehydration / empty stomach, and both meds. He is to complete course of augmentin on discharge. Patient was found to have poor dentition and recommended patient to follow up with dentist/oral surgeon within a few weeks for further evaluation and treatment. Recommended patient to take pepsid for ~2 months if abdominal burning sensation returns. If nothing improves may need to consider follow up with GI for possible scope/further evaluation New Prescription Augmentin avoid taking ibuprofen/naproxen Follow up: PCP 3-5 days Dentist/oral surgeon within a month Time spent managing pt's care (in minutes): 45
== END 2022-07-28 10:41 | disposition home or self-care (01) | DRG 641 ==
LOC: ER 01:44 → ERHOLD 04:54 → 4TH 06:41 → OBSVTOIN 14:09
PROVIDERS: ADMIT Hospitalist; ATTEND Hospitalist
DX: E86.0 Dehydration (principal); E87.20 Acidosis, unspecified; E87.1 Hypo-osmolality and hyponatremia; K02.9 Dental caries, unspecified; K52.9 Noninfective gastroenteritis and colitis, unspecified; F17.210 Nicotine dependence, cigarettes, uncomplicated; Z71.6 Tobacco abuse counseling
CPT/HCPCS: 36415; 70450; 71045; 74177; 76705; 80048; 80053; 80143; 81001; 83605; 83690; 83735; 84145; 84439; 84443; 85025; 85027; 87040; 99285; G0378; J0295; J1650; J2405; J2550; J3480; J7030; J7120; Q9967